=== PATIENT | male | born 1960 | race African-American/Black ===

== ENCOUNTER 2016-12-05 12:25 | Emergency (ER) | payer SELFPAY ==
[~2016-12-05] VITALS: Ht 185.4 cm; Wt 83.9 kg
[2016-12-05] MEDS ORDERED: Methocarbamol 750mg tab ORAL ONE (12:45)
[2016-12-05 12:50] VITALS: BP 192/108
[2016-12-05] MEDS ORDERED: LISINOPRIL2.5 MG ORAL (12:50)
[2016-12-05] MEDS ORDERED: METFORMIN HCL500 M1 ORAL (12:50)
[2016-12-05] MEDS ORDERED: ASPIR 8181 MG ORAL (12:50)
[2016-12-05] MEDS ORDERED: NORVASC10 MG ORAL (13:05)
[2016-12-05] MEDS ORDERED: LISINOPRIL20 MG ORAL (13:05)
[2016-12-05] MEDS ORDERED: IBUPROFEN600 MG ORAL (13:05)
[2016-12-05] MEDS ORDERED: ROBAXIN-750750 MG PO (13:05)
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
== END 2016-12-05 13:16 | disposition home or self-care (01) ==
LOC: EMR 13:00
DX: T14.8 Other injury of unspecified body region (principal); M54.5 Low back pain; M54.2 Cervicalgia; E11.9 Type 2 diabetes mellitus without complications; I10 Essential (primary) hypertension; M06.9 Rheumatoid arthritis, unspecified; V43.52XA Car driver injured in collision with other type car in traffic accident, initial encounter; Y92.410 Unspecified street and highway as the place of occurrence of the external cause; Y99.8 Other external cause status
CPT/HCPCS: 99284